=== PATIENT | male | born 1950 | race Caucasian/White ===

== ENCOUNTER 2017-04-23 11:44 | Emergency (ER) | payer MEDICAID, OTHER ==
[~2017-04-23] VITALS: Ht 185.4 cm; Wt 100.0 kg
[2017-04-23 11:47] VITALS: Ht 185.4 cm; Wt 100.0 kg
[2017-04-23] MEDS ORDERED: CEPHALEXIN 500 MG CAP PO ONE (12:30)
[2017-04-23] MEDS ORDERED: TRIMETHOPRIM/SULFAMETHOX (DS) TAB PO ONE (12:30)
[2017-04-23] MEDS ORDERED: predniSONE 20 MG TAB PO ONE (12:30)
[2017-04-23] MEDS ORDERED: IBUPROFEN 600 MG TAB PO ONE (12:30)
--- NOTE | 2017-04-23 12:39 | ERD ---
ER Documentation Chief Complaint Date/Time DATE: 04/23/17 TIME: 12:35 Chief Complaint POSSIBLE INSECT BITE ON RIGHT LEG HPI 58-year-old male complains of some redness and pain on his right abraham area. Started after possibly [place]. She had more red and more pain for last 2 days. He denies fevers, vomiting, shortness of the chest pain. Denies any shortness of breath or calf swelling . ROS All systems reviewed and are negative except as per history of present illness. Medications Home Meds Active Scripts Triamcinolone Acetonide (Triamcinolone Acetonide) 0.1% - 15 Gm Cream.gm., 1 APPLIC TOP QID for 7 Days, #1 TUB Prov:SANKET ROMERO MD 04/23/17 Cephalexin* (Cephalexin*) 500 Mg Capsule, 500 MG PO Q6 for 7 Days, #28 CAP Prov:SANKET ROMERO MD 04/23/17 Sulfamethoxazole/Trimethoprim* (Bactrim Ds* Tablet) 1 Each Tablet, 1 TAB PO BID for 7 Days, #14 TAB Prov:SANKET ROMERO MD 04/23/17 Allergies Allergies: Coded Allergies: ibuprofen (Verified Allergy, Intermediate, 04/23/17) Physical Exam Vitals Vital Signs Date Time Temp Pulse Resp B/P Pulse Ox O2 Delivery O2 Flow Rate FiO2 04/23/17 11:47 97.6 75 20 147/61 99 Physical Exam Const: [] Alert, non-open Head: Atraumatic Eyes: Normal Conjunctiva ENT: Normal External Ears, Nose and Mouth. Neck: Full range of motion..~ No meningismus. Resp: Clear to auscultation bilaterally Cardio: Regular rate and rhythm, no murmurs Abd: Soft, non tender, non distended. Normal bowel sounds Skin: No petechiae or rashes Back: No midline or flank tenderness Ext: No cyanosis, or edema. There is some tenderness associated with an excoriated papule on the anterior aspect of the right abraham. Is no calf swelling or Homans sign. The area of redness and irritation is approximately 3- 4 cm. Neur: Awake and alert Psych: Normal Mood and Affect Results 24 hrs Current Medications Medications (Trade) Dose Ordered Sig/Norberto Route PRN Reason Start Time Stop Time Status Last Admin Dose Admin Prednisone (Prednisone) 40 mg ONCE ONCE PO 04/23/17 12:30 04/23/17 12:31 DC Trimethoprim/ Sulfamethoxazole (Bactrim (Ds)) 1 tab ONCE ONCE PO 04/23/17 12:30 04/23/17 12:31 DC Cephalexin (Keflex) 500 mg ONCE ONCE PO 04/23/17 12:30 04/23/17 12:31 DC Ibuprofen (Motrin) 600 mg ONCE ONCE PO 04/23/17 12:30 04/23/17 12:31 DC Procedures/MDM Patient presents with signs and symptoms of what appears to be likely an insect bite with local reaction as well as possible early infection. Patient was given prednisone 40 mg by mouth here as well as Bactrim and Keflex and triamcinolone cream, and will be treated with Bactrim and Keflex home instructions for recheck in 2 days. Signs and symptoms do not suggest sepsis, DVT, osteomyelitis, additional causes of presenting complaints but patient should recheck in 2 days as directed. The patient was stable with no new complaints during the ER course. Clinically, there is no current evidence to suggest meningitis, sepsis, acute abdomen, pneumonia, acute coronary syndrome, pulmonary embolism, or any other emergent condition appearing to require further evaluation or hospitalization. The patient should certainly return for any new or worsening symptoms per the aftercare instructions. They should otherwise follow-up with her primary care doctor for reevaluation this week. SANKET ROMERO MD Apr 23, 2017 12:39
[2017-04-23] MEDS ORDERED: KENC1 TOP (12:42)
[2017-04-23] MEDS ORDERED: SULF1TAB31 PO (12:42)
[2017-04-23] MEDS ORDERED: CEPH500C PO (12:42)
== END 2017-04-23 13:28 | disposition home or self-care (01) ==
LOC: FTE 11:44
DX: S80.861A Insect bite (nonvenomous), right lower leg, initial encounter (principal); W57.XXXA Bitten or stung by nonvenomous insect and other nonvenomous arthropods, initial encounter; Y92.830 Public park as the place of occurrence of the external cause
CPT/HCPCS: J7512; Z7502; Z7610; 99284